=== PATIENT | male | born 1980 ===

== ENCOUNTER → 2018-10-20 16:03 | Outpatient (REF) | payer OTHER, SELFPAY ==
[2018-10-20 17:44] LABS: Hemoglobin A1C% w Est Avg Glu 5.2 % (4.0-6.0)
[2018-10-20 17:45] LABS: Glucose 87 mg/dL (70-100)
== END ==
LOC: LAB 16:03
PROVIDERS: Visit Provider Specialist
DX: R73.01 Impaired fasting glucose (principal)
CPT/HCPCS: 82947; 83036